=== PATIENT | male | born 1960 | race Caucasian/White ===

== ENCOUNTER 2024-04-03 11:35 | Outpatient (CLI) | payer MEDICARE, SELFPAY ==
[2024-04-03 12:37] LABS: Basophils % 0.3 % (0.1-2.0); Eosinophils # 0.2 K/mm3 (0.0-0.4); Eosinophils % 2.3 % (0.1-12.0); Hemoglobin 15.2 g/dL (14.1-18.0); Lymphocytes # 1.4 K/mm3 (0.7-4.5); Lymphocytes % 15.7 % (10-50); Mean Corpuscular Hemoglobin 29.5 pg (27.0-31.2); Mean Corpuscular Volume 89.3 fl (80-94); Mean Platelet Volume 9.1 fl (7.4-10.4); Monocytes # 0.5 K/mm3 (0.1-1.0); Monocytes % 6.2 % (1.7-9.3); Neutrophils # 6.6 K/mm3 (1.8-7.8); Neutrophils % 75.2 % (37.0-80.0); Platelet Count 276 K/mm3 (142-424); Red Blood Count 5.15 M/mm3 (4.60-6.20); White Blood Count 8.7 K/mm3 (4.8-10.8)
[2024-04-03 13:10] LABS: Alanine Aminotransferase 29 U/L (12-78); Albumin Level 3.9 g/dl (3.5-5.0); Albumin/Globulin Ratio 1.6 (1.1-1.8); Alkaline Phosphatase 150 U/L (38-126); Anion Gap 10.5 mEq/L (5-15); Aspartate Amino Transferase 31 U/L (17-59); Bilirubin,Total 0.9 mg/dl (0.2-1.3); Blood Urea Nitrogen 17 mg/dl (9-20); Calcium 9.5 mg/dl (8.4-10.2); Carbon Dioxide 30 mmol/L (22.0-30.0); Chloride 98 mmol/L (98-107); Chol/HDL Ratio 2.9 (1-3.5); Cholesterol 123 mg/dl (140-200); Estimated Glomerular Filt Rate 137 ml/min (>60); GFR (African American) 165 ML/MIN (>60); Globulin 2.4 g/dL (1.3-3.2); Glucose 289 mg/dl (74-100); HDL Cholesterol 42 mg/dl (40-60); Potassium 4.5 mmoL/L (3.5-5.1); Sodium 134 mmol/L (136-145); Total Protein,Serum 6.3 g/dl (6.3-8.2); Triglycerides 200 mg/dl (30-150); VLDL Cholesterol 40 mg/dL (0-40)
[2024-04-03 13:21] LABS: Direct LDL Cholesterol 56.16 mg/dL (100-129)
[2024-04-03 13:26] LABS: 25-OH Vitamin D, Total 20.9 ng/mL (30-100)
[2024-04-03 13:41] LABS: Thyroid Stimulating Hormone 1.21 uIU/mL (0.465-4.68)
[2024-04-03 14:08] LABS: Hemoglobin A1C 10.7 % (4.0-6.0)
[2024-04-04 05:53] LABS: HBsAg Screen Negative (Negative); HCV Ab Non Reactive (Non Reactive); Hep A Ab, IGM Negative (Negative); Hep B Core Ab, IgM Negative (Negative)
== END 2024-04-03 23:59 | disposition home or self-care (01) ==
LOC: LAB 11:37
PROVIDERS: PCP Internal Medicine; Visit Provider Internal Medicine
DX: Z13.21 Encounter for screening for nutritional disorder (principal); Z13.29 Encounter for screening for other suspected endocrine disorder; Z13.220 Encounter for screening for lipoid disorders; Z11.59 Encounter for screening for other viral diseases; Z13.1 Encounter for screening for diabetes mellitus; E55.9 Vitamin D deficiency, unspecified; Z68.42 Body mass index [BMI] 45.0-49.9, adult; E66.9 Obesity, unspecified; I10 Essential (primary) hypertension; R73.03 Prediabetes
CPT/HCPCS: 36415; 80053; 80061; 80074; 82306; 83036; 84439; 84443; 85025

== ENCOUNTER 2024-04-29 10:00 | Outpatient (RCR) | payer MEDICARE, SELFPAY ==
--- NOTE | 2024-04-24 17:01 | HMH.PTOPWND ---
Rehab Outpt Wound Evaluation Rehab OP Wound Evaluation Start: 04/24/24 16:39 Freq: Status: Active Protocol: Document 04/24/24 16:41 PHOPITO (Rec: 04/24/24 17:00 PHORNE [id number]) E-signed By James High, PT Subjective/History History History This is the initial PT eval for Farrukh Cisneros, 63 yowm who presents with c/o B LE lymphedema for ~ 5-6 yrs with insidious onset of symptoms. He reports increased pain in B LE, but also attributes this to significant OA. He reports difficulty mobilizing due to his comorbid conditions. He reports bout of cellulitis ~ 1 yr ago requiring hospitalization. He reports PMH of OA, HTN, DM (recent A1c 10.7%), likely JOHN, and morbid obesity. Subjective Subjective He reports pain currently 7/10 , at worst 10/10. He presents with B LE 2+ pitting edema to lower legs with underlying severe fibrotic edema, especially in B thigh lobules. He presents with significant erythema to B LE, moderate to severe hyperkeratosis to B LE, and severe dryness of the skin. He reports having compression garments he uses at home and he consistently performs B LE ther-ex consisting mainly of ankle pumps multiple times per day. He reports elevating B LE throughout the day without reduction of his symptoms. He presents with R lateral fox wound: L= 4.0 cm, W= 4.0 cm, D= 0.1 cm. Lymphedema Eval Classification of Lymphedema Secondary Lymphedema Yes Stemmer's sign Stemmer's Sign yes Stage of Lymphedema Lymphedema stages Stage III (Non-pitting, fibrosis and sclerosis, skin changes) Skin Changes Dry Skin Yes Skin Folds Yes Hyperkeratosis Yes Papillomatosis Yes Redness Yes Wounds Yes Brittle Uneven Nails Yes Discoloration of Skin Yes Lymphorrhea Yes Other Changes Yes Pain Scale Pain Scale (0-10) 7 Affected Extremities Areas Affected by Lymphedema/Edema Right Lower Extremity,Left Lower Extremity Lower Extremity Measurements Right MTP Measurement (cm) 30.1 Heel Measurement (cm) 39.8 10 cm Proximal to Lateral Malleoli 39.5 Measurement (cm) 20 cm Proximal to Lateral Malleoli 53.5 Measurement (cm) 30 cm Proximal to Lateral Malleoli 60.0 Measurement (cm) 40 cm Proximal to Lateral Malleoli 79.5 Measurement (cm) 50 cm Proximal to Lateral Malleoli 84.2 Measurement (cm) 60 cm Proximal to Lateral Malleoli 0 Measurement (cm) Lower Extremity Measurement Total (cm) 386.6 Left MTP Measurement (cm) 30.3 Heel Measurement (cm) 37.2 10 cm Proximal to Lateral Malleoli 40.6 Measurement (cm) 20 cm Proximal to Lateral Malleoli 53.9 Measurement (cm) 30 cm Proximal to Lateral Malleoli 58.0 Measurement (cm) 40 cm Proximal to Lateral Malleoli 74.5 Measurement (cm) 50 cm Proximal to Lateral Malleoli 93.8 Measurement (cm) 60 cm Proximal to Lateral Malleoli 0 Measurement (cm) Lower Extremity Measurement Total (cm) 388.3 Manual Lymphatic Drainage Treatment Area MLD Treatment Area Right Lower Extremity,Left Lower Extremity Wound Problems/Impairments Impairments Problems/Impairmments Palpation Tenderness,Impaired Range of Motion,Impaired Strength,Impaired Endurance, Impaired Transfers,Impaired Gait Pattern,Impaired Walking, Impaired Standing,Impaired Shower/Bathing,Impaired Household Care,Increased Edema ,Lymphedema Present,Wound Care Needs,Subjective C/O Pain, Impaired Self Care/Self Management Prognosis Rehab Potential Good Comment Skilled therapy is indicated to aid pt to reduce total wound surface area and reduce overall edema in order to return to PLOF. Clinical Impression Consistent with Diagnosis Yes Short Term Goals Number of Weeks 6 Decrease Edema Yes: 1+ pitting edema B lower legs Decrease Lymphedema Yes: Moderate fibrotic edema B LE Decrease Wound Area Yes: by 25% R lower leg Decrease Subjective C/O Pain Yes: 09/09 B LE Patient to Understand Lymphedema Yes Treatment and Exercises Decrease Girth Measurments by (cm) Yes: B LE total by 5 cm ea Detention Goals Number of Weeks 12 Decrease Edema Yes: no pitting edema B lower legs Decrease Lymphedema Yes: Mild fibrotic edema to B LE Decrease Wound Area Yes: by 75% R lower leg Patient to be Ind w/ HEP Yes Patient to be Ind w/ Lymphedema Self Yes Massage Technique Patient to be Ind w/ Donning/[place] Yes Compression Garments Patient to Adhere Lymphedema Precautions Yes Decrease Girth Measurments by (cm) Yes: B LE total by 20 cm Outpatient Therapy Plan of Care Treatment Plan May Include Manual Therapy Techniques Yes Neuromuscular Re-education Yes Therapeutic Activities to Return to Yes Previous Functional/Work Level ADL/Self Care Education Yes Orthotics/Bracing/Splinting Yes Vasopneumatic Compression Pump Yes Manual Lymphatic Drainage Yes Wound Care Yes Eval/Re-Eval Yes Frequency Times per week 2 Duration Number of Weeks 12 Addendums This patient is a candidate for social No or vocational rehab? Patient/Guardian verbally acknowledges Yes understanding of treatment program and consents to further treatment? Patient/Guardian verbally acknowledges Yes understanding of diagnosis, prognosis and goals for treatment? Eval Complexity PT Charges 37146 - High Complexity PHYSICIAN CERTIFICATION: I certify the specified therapy services for Farrukh Cisneros are required, authorized, and reviewed every 30 days.
== END 2024-04-29 23:59 | disposition home or self-care (01) ==
LOC: PT 10:00
PROVIDERS: Visit Provider Internal Medicine
DX: I89.0 Lymphedema, not elsewhere classified (principal)
CPT/HCPCS: 29580; 97140; 97163

== ENCOUNTER 2024-05-27 11:00 | Outpatient (RCR) | payer MEDICARE, SELFPAY ==
--- NOTE | 2024-05-22 16:24 | HMH.RHREAS ---
Rehab Reassessment Rehab OP Re-assessment Start: 05/06/24 15:32 Freq: Status: Active Protocol: Document 05/22/24 16:02 NAHED (Rec: 05/22/24 16:24 PHORMERT [id number]) E-signed By James High, PT Rehab Re-assessment Subjective Subjective Pt reports much less edema and overall pain in B LE. He states, My knees hurt, but that's from the arthritis. My ankle don't hurt anymore at all and they were really bothering me before, because of the swelling. Objective Objective Notes Pain: 4/10 at worst in B LE. Circumferential measurements: R LE total is 252.7 cm which is -49.7 cm since IE. L LE total is 247.0 cm which is -47.5 cm since IE. Edema: 1+ pitting edema to B lower legs, with MODERATE fibrotic edema throughout B LE . B LE thigh lobules are more soft and 'doughy' with palpation. R anterior fox wound: L= 3.0 cm, W= 1.0 cm, D= 0.1 cm. 100% granulation tissue noted. 81% wound total surface area healed at this time. Assessment Progress Assessment Progressing as Expected Assessment Notes Pt has shown significant reduction of B LE lymphedema based on circumferential measurements. He continues to have difficulty with overall transfers and mobility, but has shown improvements in donning and doffing shoes and other clothing. Skilled therapy remains indicated to further reduce lymphedema and reduce wound surface area in order to aid pt return to PLOF . Patient goals met ST/6 LT/8 Plan Plan Continue per initial POC. Frequency of Therapy 2 x/wk Duration of therapy 4 wks Time and Billing Re-Eval Time 13 Re-Eval Billing Units 0 Charge for PT reassessment? No PHYSICIAN CERTIFICATION: I certify the specified therapy services for Farrukh Cisneros are required, authorized, and reviewed every 30 days.
== END 2024-05-27 23:59 | disposition home or self-care (01) ==
LOC: PT 11:00
PROVIDERS: Visit Provider Internal Medicine
DX: I89.0 Lymphedema, not elsewhere classified (principal)
CPT/HCPCS: 29580; 97140

== ENCOUNTER 2024-06-19 13:00 | Outpatient (RCR) | payer MEDICARE, SELFPAY ==
--- NOTE | 2024-06-19 13:43 | HMH.RHREAS ---
Rehab Reassessment Rehab OP Re-assessment Start: 06/03/24 14:35 Freq: Status: Active Protocol: Document 06/19/24 13:29 PHOLevMERT (Rec: 06/19/24 13:43 PHORNE [id number]) E-signed By James High, PT Rehab Re-assessment Subjective Subjective Pt reports no c/o pain in B lower legs at this time. He does continue to have intermittent foot pain, but not as much as in the past. He states, I am walking a little bit in my house now and I don't feel like my legs are as heavy as they were. Objective Objective Notes Pain: 3/10 at worst in B LE. Circumferential measurements: R LE total is 265.7 cm which is -36.7 cm since IE. L LE total is 257.4 cm which is -37.1 cm since IE. Edema: 1+ pitting edema to B lower legs, with MODERATE fibrotic edema throughout B LE . B LE thigh lobules are more soft and 'doughy' with palpation. Less hyperkeratosis noted. R anterior fox wound: L= 0.8 cm, W= 1.0 cm, D= 0.1 cm. 100% granulation tissue noted. Assessment Progress Assessment Progressing as Expected Assessment Notes Pt has shown continued reduction of B LE lymphedema vs initial eval based on circumferential measurements. He continues to have difficulty with overall transfers and mobility, but has shown improvements in donning and doffing shoes and other clothing. Skilled therapy remains indicated to further reduce lymphedema and reduce wound surface area in order to aid pt return to PLOF . Patient goals met ST/6 LT/8 Plan Plan Continue per initial POC. Frequency of Therapy 2 x/wk Duration of therapy 4 wks Time and Billing Re-Eval Time 11 Re-Eval Billing Units 0 Charge for PT reassessment? No PHYSICIAN CERTIFICATION: I certify the specified therapy services for Farrukh Cisneros are required, authorized, and reviewed every 30 days.
== END 2024-06-19 23:59 | disposition home or self-care (01) ==
LOC: PT 13:00
PROVIDERS: Visit Provider Internal Medicine
DX: I89.0 Lymphedema, not elsewhere classified (principal)
CPT/HCPCS: 97140

== ENCOUNTER 2024-07-22 11:00 | Outpatient (RCR) | payer MEDICARE, SELFPAY ==
--- NOTE | 2024-07-22 12:57 | HMH.RHREAS ---
Rehab Reassessment Rehab OP Re-assessment Start: 07/02/24 17:19 Freq: Status: Active Protocol: Document 07/22/24 12:49 NAHED (Rec: 07/22/24 12:56 PHOPITO [id number]) E-signed By James High, PT Rehab Re-assessment Subjective Subjective Pt reports he has less pain and improved sensation in B LE with reducing edema. I can feel my legs are doing better and it even feels like I'm circulating blood better in my legs now. He also reports increased ambulation ability with decreased edema. Objective Objective Notes Pain: 3/10 at worst in B LE. Circumferential measurements: R LE total is 255.1 cm which is -47.3 cm since IE. L LE total is 249. cm which is -44.5 cm since IE. Edema: 1+ pitting edema to B lower legs, with MILD fibrotic edema throughout B LE. B LE thigh lobules are more soft and 'doughy' with palpation. Less hyperkeratosis noted. R anterior fox wound: L= 0.9 cm, W= 0.8 cm, D= 0.1 cm. 100% granulation tissue noted. Assessment Progress Assessment Progressing as Expected Assessment Notes Pt has shown continued reduction of B LE lymphedema vs initial eval based on circumferential measurements. He continues to have difficulty with overall transfers and mobility, but has shown improvements in donning and doffing shoes and other clothing. Skilled therapy remains indicated to further reduce lymphedema and reduce wound surface area in order to aid pt return to PLOF . Patient goals met ST/6 LT/8 Plan Plan Continue per initial POC. Frequency of Therapy 1-2 x/wk Duration of therapy 4 wks Time and Billing Re-Eval Time 11 Re-Eval Billing Units 0 Charge for PT reassessment? No PHYSICIAN CERTIFICATION: I certify the specified therapy services for Farrukh Cisneros are required, authorized, and reviewed every 30 days.
== END 2024-07-22 23:59 | disposition home or self-care (01) ==
LOC: PT 11:00
PROVIDERS: Visit Provider Internal Medicine
DX: I89.0 Lymphedema, not elsewhere classified (principal)
CPT/HCPCS: 97140

== ENCOUNTER 2024-08-28 10:00 | Outpatient (RCR) | payer MEDICARE, SELFPAY ==
--- NOTE | 2024-08-20 12:47 | HMH.RHREAS ---
Rehab Reassessment Rehab OP Re-assessment Start: 08/05/24 16:52 Freq: Status: Active Protocol: Document 08/20/24 12:30 NAHED (Rec: 08/20/24 12:46 PHORNE [id number]) E-signed By James High, PT Rehab Re-assessment Subjective Subjective Pt reports he is doing well with his edema in lower legs, but continues to have increased edema in his upper leg and thigh area. No c//o pain or tenderness at this time. Objective Objective Notes Pain: 2/10 at worst in B LE. Circumferential measurements: R LE total is 269.5 cm which is -32.9 cm since IE. L LE total is 258.2 cm which is -35.3 cm since IE. Edema: 1+ pitting edema to B lower legs, with MILD fibrotic edema throughout B LE. B LE thigh lobules are more soft and 'doughy' with palpation. Less hyperkeratosis noted. Assessment Progress Assessment Slower Than Expected Assessment Notes Pt has shown an increase in overall B LE edema with this reassessment over the past 29 days. He has been present for only 3 visits since last reassessment. He continues to have difficulty with overall transfers and mobility, but has shown improvements in donning and doffing shoes and other clothing. Skilled therapy remains indicated to further reduce lymphedema and reduce wound surface area in order to aid pt return to PLOF . Patient goals met ST/6 LT/8 Plan Plan Continue per initial POC. Pt must remain consistent with treatment regimen to meet goals further. Frequency of Therapy 1-2 x/wk Duration of therapy 3-4 wks Time and Billing Re-Eval Time 12 Re-Eval Billing Units 0 Charge for PT reassessment? No PHYSICIAN CERTIFICATION: I certify the specified therapy services for Farrukh Cisneros are required, authorized, and reviewed every 30 days.
== END 2024-08-28 23:59 | disposition home or self-care (01) ==
LOC: PT 10:00
PROVIDERS: Visit Provider Internal Medicine
DX: I89.0 Lymphedema, not elsewhere classified (principal)
CPT/HCPCS: 97140; 97760